=== PATIENT | female | born 1955 | race Caucasian/White ===

== ENCOUNTER 2017-01-31 08:53 | Emergency (ER) | payer OTHER ==
[~2017-01-31] VITALS: Ht 162.6 cm; Wt 94.0 kg
[~2017-01-31 08:53] MED LIST: IBUP200T2 PO; LYSI500C PO; MECL-62 PO; MULT1TAB84 PO; PROC10TA PO; VENTAER INH; [UNRECOGNIZED DRUG - CODE] PO
[2017-01-31 08:55] VITALS: BP 179/97; PULSE 124; RESP 20; TEMP 98.6; O2SAT 98
[2017-01-31] MEDS ORDERED: LYSI1TAB4 PO (09:10)
[2017-01-31] MEDS ORDERED: MULTTAB67 PO (09:10)
[2017-01-31 09:50] VITALS: BP 157/71; PULSE 121; RESP 24; O2SAT 97
[2017-01-31] MEDS ORDERED: TUSSSUS2 PO (09:56)
--- NOTE | 2017-01-31 10:00 | PD ---
HPI . Cough Chief Complaint: Respiratory Symptoms Time Seen by Provider: 09:53 Travel History International Travel<30 days: No Contact w/Intl Traveler<30days: No Traveled to known affect area: No History of Present Illness HPI This patient presents with a chief complaint of cough. She states that she was exposed to a chemical 2 days ago and has had episodes of coughing since that time. The cough is not productive. She is not short of breath. She is not running fever. She states that the chemical smell was in her house and that she didn't really think to open the windows. She states that she called her brother last night and he came and picked her up and took her to his house for the night and opened all the windows at her house. Her cough persisted during the night causing her brother to bring her here today for evaluation. This patient has a history of asthma and states that she has used her Ventolin inhaler approximately 5 times during the course of the night. Despite that, she has continued to cough. PFSH Past Medical History Asthma: Yes Cardiovascular Problems: Yes (FAMILY) COPD: No Diminished Hearing: No Endocrine: No Genitourinary: No Immune Disorder: No Musculoskeletal: Yes Neurologic: No Psychiatric: No Reproductive: No Respiratory: Yes (ASTHMA) Sleep Apnea: No Influenza Vaccination: No Menopausal: Yes Tubal Ligation: Yes (1988) Past Surgical History Abdominal Surgery: No Cardiac Surgery: No Ear Surgery: No Endocrine Surgery: No Eye Surgery: Yes (BOTH EYES AGE 2 AND AT 14) Genitourinary Surgery: No Gynecologic Surgery: Yes (D&C, tubal ligation - 26 years ago) Hysterectomy: Yes Oral Surgery: No Thoracic Surgery: No Tonsillectomy: Yes Other Surgery: Yes Social History Alcohol Use: No Tobacco Use: No Substance Use: No Allergies-Medications (Allergen,Severity, Reaction): Coded Allergies: doxycycline (Unverified Allergy, Severe, THROAT TIGHT, 01/31/17) minocycline (Unverified Allergy, Severe, THROAT TIGHT, 01/31/17) piroxicam (Unverified Allergy, Severe, Rash, 01/31/17) tigecycline (Unverified Allergy, Severe, THROAT TIGHT, 01/31/17) acetaminophen (Unverified Allergy, Intermediate, Itching, 01/31/17) oxycodone (Unverified Allergy, Intermediate, Itching, 01/31/17) monosodium glutamate (Unverified Allergy, Mild, ASTHMA PROBLEMS, 01/31/17) lactose (Unverified Allergy, Unknown, 01/31/17) Reported Meds & Prescriptions Reported Meds & Active Scripts Active Tussionex Pennkinetic Ext 12 HR Liq (Hydrocodone-Chlorpheniramine 12 HR Liq) 10- 8 Mg/5 Ml Susp 5 Ml PO Q12H PRN Meclizine (Meclizine HCl) 25 Mg Tab 25 Mg PO TID PRN Ventolin Hfa 18 GM Inh (Albuterol Sulfate) 90 Mcg/Act Aer 2 Puff INH Q4H PRN Reported Multiple Vitamin 1 Tab 1 Tab PO DAILY Lysine (Lysine HCl) 500 Mg Tab 1 Tab PO BID Review of Systems Except as stated in HPI: all other systems reviewed are Neg General / Constitutional: No: Fever, Chills Respiratory: Positive: Cough, No: Shortness of Breath Physical Exam Narrative GENERAL: Awake and alert and in no acute distress. SKIN: warm/dry. No rash. HEAD: Normocephalic. Atraumatic. EYES: Pupils equal and round. No scleral icterus. No injection or drainage. ENT: No nasal bleeding or discharge. Mucous membranes pink and moist. NECK: Trachea midline. Full range of motion without pain.. CARDIOVASCULAR: Regular rate and rhythm. Heart sounds normal. RESPIRATORY: Able to speak in complete sentences with no respiratory distress. No accessory muscle use. Clear to auscultation. Breath sounds equal bilaterally. GASTROINTESTINAL: Abdomen soft. Nontender. Bowel sounds present. Nondistended. MUSCULOSKELETAL: No obvious deformities. NEUROLOGICAL: Awake and alert. No obvious cranial nerve deficits. Motor grossly within normal limits. Normal speech. PSYCHIATRIC: Appropriate mood and affect; insight and judgment normal. Data Data Last Documented VS Vital Signs Date Time Temp Pulse Resp B/P (MAP) Pulse Ox O2 Delivery O2 Flow Rate FiO2 01/31/17 09:50 121 24 157/71 (99) 97 Room Air 01/31/17 08:55 98.6 MDM Medical Decision Making Medical Screen Exam Complete: Yes Emergency Medical Condition: Yes Differential Diagnosis Differential diagnosis includes but is not limited to viral respiratory illness , bronchitis, pneumonia, allergies, CHF, asthma/COPD. Narrative Course This patient presents with a cough which started after she noted a chemical odor in her house. She does have a history of asthma. However, her chest exam is completely normal. It sounds like she has a mild case of chemical pneumonitis. She will be discharged with instructions to continue her albuterol as needed. I will give her a prescription for Tussionex for cough suppression. Diagnosis Primary Impression: Chemical pneumonitis Patient Instructions: General Instructions Departure Forms: Tests/Procedures Scripts Hydrocodone-Chlorpheniramine 12 HR Liq (Tussionex Pennkinetic Ext 12 HR Liq) 10- 8 Mg/5 Ml Susp 5 ML PO Q12H Y for COUGH AND/OR COLD SYMPTOMS, #60 ML 0 Refills Prov: Sherrie Hernandez MD 01/31/17 Disposition: DISCHARGE HOME Condition: Stable Sherrie Hernandez MD Jan 31, 2017 10:00
[2017-02-06] MEDS ORDERED: PULM180I INH (14:05)
== END 2017-01-31 10:25 | disposition home or self-care (01) ==
LOC: NEPD 08:53
DX: T59.91XA Toxic effect of unspecified gases, fumes and vapors, accidental (unintentional), initial encounter (principal); J68.0 Bronchitis and pneumonitis due to chemicals, gases, fumes and vapors; Z87.09 Personal history of other diseases of the respiratory system; Z87.39 Personal history of other diseases of the musculoskeletal system and connective tissue; Y92.009 Unspecified place in unspecified non-institutional (private) residence as the place of occurrence of the external cause
CPT/HCPCS: 99283

== ENCOUNTER → 2017-02-09 | Outpatient (CLI) | payer OTHER ==
[~2017-02-09] MED LIST changes: -IBUP200T2 PO; +LYSI1TAB4 PO; -LYSI500C PO; -MULT1TAB84 PO; +MULTTAB67 PO; -PROC10TA PO; +PULM180I INH; +TUSSSUS2 PO; -[UNRECOGNIZED DRUG - CODE] PO
--- NOTE | 2017-02-09 11:02 | RADRPT ---
EXAM DATE/TIME: 02/09/2017 10:34 [facility] COMPARISON: No previous studies available for comparison. INDICATIONS : Chest discomfort; Chemical pneumonitis. MEDICAL HISTORY : Asthma. SURGICAL HISTORY : None. ENCOUNTER: Initial ACUITY: 3 weeks PAIN SCORE: 0/10 LOCATION: Bilateral chest FINDINGS: PA and lateral views of the chest demonstrate the lungs to be symmetrically aerated without evidence of mass, infiltrate or effusion. The cardiomediastinal contours are unremarkable. Osseous structure s are intact. CONCLUSION: No acute disease. Leopoldo Wolfe MD on February 09, 2017 at 10:47 Board Certified Radiologist. This report was verified electronically.
== END ==
LOC: HLAB 10:14
PROVIDERS: ATTEND Family Medicine
DX: J68.0 Bronchitis and pneumonitis due to chemicals, gases, fumes and vapors (principal)
CPT/HCPCS: 71020

== ENCOUNTER 2017-05-15 19:02 | Emergency (ER) | payer OTHER ==
[~2017-05-15] VITALS: Ht 162.6 cm; Wt 93.0 kg
[~2017-05-15 19:02] MED LIST changes: -LYSI1TAB4 PO; +LYSI500T12 PO
[2017-05-15 19:19] VITALS: BP 143/71; PULSE 87; RESP 19; TEMP 97.9; O2SAT 99
[2017-05-15] MEDS ORDERED: SODIUM CHLOR 0.9% 1000 ML INJ 1,000 ML IV SCH (19:33)
[2017-05-15 19:44] VITALS: O2SAT 98
[2017-05-15] MEDS ORDERED: SODIUM CHLORIDE 0.9% FLUSH 10 ML FLUSH IV FLUSH PRN (19:45)
[2017-05-15] MEDS ORDERED: DICYCLOMINE HCL 20 MG/2 ML VIAL IM ONE (19:45)
[2017-05-15] MEDS ORDERED: LIDOCAINE VISCOUS 2% SOLN 15 ML UDC PO ONE (19:45)
[2017-05-15] MEDS ORDERED: ALUMINUM/MAGNESIUM/SIMETH 30 ML CUP PO ONE (19:45)
[2017-05-15] MEDS ORDERED: HYDROmorphone HCL PF 2 MG/ML VIAL IV PUSH ONE (19:45)
[2017-05-15] MEDS ORDERED: ONDANSETRON HCL 4 MG/2 ML VIAL IVP ONE (19:45)
[2017-05-15 20:14] LABS: AUTOMATED NEUTROPHIL # 10.7 TH/MM3 (1.8-7.7); BASOPHIL % 0.3 % (0.0-2.0); EOSINOPHIL # 0.2 TH/MM3 (0-0.4); EOSINOPHIL % 1.8 % (0.0-4.0); HEMATOCRIT 45.5 % (35.0-46.0); HEMOGLOBIN 15.1 GM/DL (11.6-15.3); LYMPH % 12.7 % (9.0-44.0); LYMPHOCYTE # 1.7 TH/MM3 (1.0-4.8); MEAN CELL VOLUME 82.9 FL (80.0-100.0); MEAN CORPUSCULAR HEMOGLOBIN 27.4 PG (27.0-34.0); MEAN CORPUSCULAR HGB CONC 33.1 % (32.0-36.0); MEAN PLATELET VOLUME 8.7 FL (7.0-11.0); MONO % 4.7 % (0.0-8.0); MONOCYTE # 0.6 TH/MM3 (0-0.9); NEUT % 80.5 % (16.0-70.0); PLATELET COUNT 272 TH/MM3 (150-450); RED BLOOD COUNT 5.49 MIL/MM3 (4.00-5.30); RED CELL DISTRIBUTION WIDTH 13.6 % (11.6-17.2); WHITE BLOOD COUNT 13.2 TH/MM3 (4.0-11.0)
[2017-05-15 20:27] LABS: ALBUMIN 4.4 GM/DL (3.4-5.0); AST (GOT) 25 U/L (15-37); BICARBONATE 25.8 MEQ/L (21.0-32.0); BLOOD UREA NITROGEN 15 MG/DL (7-18); CALCIUM 9.1 MG/DL (8.5-10.1); CHLORIDE 104 MEQ/L (98-107); CREATININE 0.84 MG/DL (0.50-1.00); GLOMERULAR FILTRATION RATE 68 ML/MIN (>89); GLUCOSE,RANDOM 133 MG/DL (74-106); LIPASE 106 U/L (73-393); SODIUM (NA) 138 MEQ/L (136-145)
[2017-05-15 20:31] LABS: ALKALINE PHOSPHATASE 85 U/L (45-117); ALT (GPT) 37 U/L (10-53); TOTAL BILIRUBIN ADULT 0.7 MG/DL (0.2-1.0); TOTAL PROTEIN 8.2 GM/DL (6.4-8.2)
[2017-05-15] MEDS ORDERED: IOHEXOL 350 MG/ML 10 ML VIAL (for RAD DIAG) IVCONTRAST ONE (21:07)
--- NOTE | 2017-05-15 21:27 | RADRPT ---
EXAM DATE/TIME: 05/15/2017 20:59 [facility] COMPARISON: No previous studies available for comparison. INDICATIONS : Abdominal pain. IV CONTRAST: 91 cc Omnipaque 350 (iohexol) IV ORAL CONTRAST: No oral contrast ingested. RADIATION DOSE: 19.20 CTDIvol (mGy) MEDICAL HISTORY : Cardiovascular disease. Asthma SURGICAL HISTORY : Tubal ligation. Tonsillectomy.D&C ENCOUNTER: Initial ACUITY: 1 day PAIN SCALE: 6/10 LOCATION: abdomen TECHNIQUE: Volumetric scanning of the abdomen and pelvis was performed. Using automated exposure control and ad justment of the mA and/or kV according to patient size, radiation dose was kept as low as reasonably achievable to obtain optimal diagnostic quality images. DICOM format image data is available electro nically for review and comparison. FINDINGS: Minimal basilar scarring. Mild fatty liver. Spleen, adrenals, kidneys and pancreas unremarkable. No c alcified gallstones or biliary ductal dilatation. There is a diffuse mild ileus. No definite bowel obstruction. No free air or free fluid. No adenopath y. CONCLUSION: 1. Mild basilar lung scarring. Mild fatty liver. Diffuse ileus. No obstruction, free fluid or free ai r. Alverto Babcock MD on May 15, 2017 at 21:22 Board Certified Radiologist. This report was verified electronically.
[2017-05-15 22:52] LABS: BACTERIA, URINE FEW /hpf; BILIRUBIN, URINE NEG (NEG); BLOOD, URINE NEG (NEG); GLUCOSE,URINE NEG (NEG); KETONE, URINE NEG (NEG); MUCUS URINE FEW /lpf (OCC); NITRITE,URINE NEG (NEG); PH, URINE 5.5 (5.0-8.5); SQUAMOUS EPITHELIAL CELL URINE 2 /hpf (0-5); URINE COLOR LIGHT-YELLOW (YELLW/STRAW); URINE LEUKOCYTE ESTERASE MOD (NEG)
[2017-05-15] MEDS ORDERED: BACT800T5 PO (23:06)
--- NOTE | 2017-05-15 23:06 | PD ---
HPI Chief Complaint: GI Complaint Time Seen by Provider: 19:20 Travel History International Travel<30 days: No Contact w/Intl Traveler<30days: No Traveled to known affect area: No History of Present Illness HPI The patient 61 years old. She arrives by EMS. She reports a sudden onset of nausea vomiting and epigastric abdominal pain. EMS gave Zofran which was marginally helpful. She has no fever. She has no shortness of breath. No blood in the emesis reported. Pain severity reported to 10 over 10. Duration pain about 5 hours. PFSH Past Medical History Asthma: Yes Cardiovascular Problems: Yes (FAMILY) COPD: No Diminished Hearing: No Endocrine: No Gastrointestinal Disorders: No Genitourinary: No Immune Disorder: No Implanted Vascular Access Dvce: No Musculoskeletal: Yes Neurologic: No Psychiatric: No Reproductive: No Respiratory: Yes (ASTHMA) Sleep Apnea: No ?: Not Menopausal: Yes Tubal Ligation: Yes (1988) Past Surgical History Abdominal Surgery: No Cardiac Surgery: No Ear Surgery: No Endocrine Surgery: No Eye Surgery: Yes (BOTH EYES AGE 2 AND AT 14) Genitourinary Surgery: No Gynecologic Surgery: Yes (D&C, tubal ligation - 26 years ago) Hysterectomy: Yes Neurologic Surgery: No Oral Surgery: No Thoracic Surgery: No Tonsillectomy: Yes Other Surgery: Yes Social History Alcohol Use: No Tobacco Use: No Substance Use: No Allergies-Medications (Allergen,Severity, Reaction): Coded Allergies: doxycycline (Unverified Allergy, Severe, THROAT TIGHT, 05/15/17) minocycline (Unverified Allergy, Severe, THROAT TIGHT, 05/15/17) piroxicam (Unverified Allergy, Severe, Rash, 05/15/17) tigecycline (Unverified Allergy, Severe, THROAT TIGHT, 05/15/17) acetaminophen (Unverified Allergy, Intermediate, Itching, 05/15/17) oxycodone (Unverified Allergy, Intermediate, Itching, 05/15/17) monosodium glutamate (Unverified Allergy, Mild, ASTHMA PROBLEMS, 05/15/17) lactose (Unverified Allergy, Unknown, 05/15/17) Reported Meds & Prescriptions Reported Meds & Active Scripts Active Bactrim DS (Sulfamethoxazole-Trimethoprim) 800-160 Mg Tab 1 Tab PO BID Pulmicort Flexhaler (Budesonide Powder Inh) 180 Mcg/Act Inhp 180 Mcg INH Q12HR Tussionex Pennkinetic Ext 12 HR Liq (Hydrocodone-Chlorpheniramine 12 HR Liq) 10- 8 Mg/5 Ml Susp 5 Ml PO Q12H PRN Meclizine (Meclizine HCl) 25 Mg Tab 25 Mg PO TID PRN Ventolin Hfa 18 GM Inh (Albuterol Sulfate) 90 Mcg/Act Aer 2 Puff INH Q4H PRN Reported Multiple Vitamin 1 Tab 1 Tab PO DAILY Lysine (Lysine HCl) 500 Mg Tab 1 Tab PO BID Review of Systems Except as stated in HPI: all other systems reviewed are Neg General / Constitutional: No: Fever Physical Exam Narrative GENERAL: 61-year-old female pleasant well-nourished well-developed mild distress SKIN: Warm and dry. HEAD: Atraumatic. Normocephalic. EYES: Pupils equal and round. No scleral icterus. No injection or drainage. ENT: No nasal bleeding or discharge. Mucous membranes pink and moist. NECK: Trachea midline. No JVD. CARDIOVASCULAR: Regular rate and rhythm. RESPIRATORY: No accessory muscle use. Clear to auscultation. Breath sounds equal bilaterally. GASTROINTESTINAL: Abdomen soft, non-tender, nondistended. Hepatic and splenic margins not palpable. MUSCULOSKELETAL: Extremities without clubbing, cyanosis, or edema. No obvious deformities. NEUROLOGICAL: Awake and alert. No obvious cranial nerve deficits. Motor grossly within normal limits. Five out of 5 muscle strength in the arms and legs. Normal speech. PSYCHIATRIC: Appropriate mood and affect; insight and judgment normal. Data Data Last Documented VS Vital Signs Date Time Temp Pulse Resp B/P (MAP) Pulse Ox O2 Delivery O2 Flow Rate FiO2 05/15/17 19:44 98 Room Air 05/15/17 19:19 97.9 87 19 143/71 (95) VS reviewed Orders Orders Complete Blood Count With Diff (05/15/17 19:33) Comprehensive Metabolic Panel (05/15/17 19:33) Lipase (05/15/17 19:33) Urinalysis - C+S If Indicated (05/15/17 19:33) Ct Abd/Pel W Iv Contrast(Rout) (05/15/17 19:33) Iv Access Insert/Monitor (05/15/17 19:33) Ecg Monitoring (05/15/17 19:33) Oximetry (05/15/17 19:33) Ondansetron Inj (Zofran Inj) (05/15/17 19:45) Sodium Chlor 0.9% 1000 Ml Inj (Ns 1000 M (05/15/17 19:33) Sodium Chloride 0.9% Flush (Ns Flush) (05/15/17 19:45) Dicyclomine Inj (Bentyl Inj) (05/15/17 19:45) Al-Mag Hy-Si 40-40-4 Mg/Ml Liq (Mag-Al P (05/15/17 19:45) Lidocaine 2% Viscous (Xylocaine 2% Visco (05/15/17 19:45) Hydromorphone Pf Inj (Dilaudid Pf Inj) (05/15/17 19:45) Iohexol 350 Inj (Omnipaque 350 Inj) (05/15/17 21:07) Urine Culture (05/15/17 22:20) Sulfamet-Trimeth Ds 800-160 Mg (Bactrim (05/15/17 23:15) Ed Discharge Order (05/15/17 23:35) Labs Laboratory Tests Test 05/15/17 19:45 05/15/17 22:20 White Blood Count 13.2 TH/MM3 Red Blood Count 5.49 MIL/MM3 Hemoglobin 15.1 GM/DL Hematocrit 45.5 % Mean Corpuscular Volume 82.9 FL Mean Corpuscular Hemoglobin 27.4 PG Mean Corpuscular Hemoglobin Concent 33.1 % Red Cell Distribution Width 13.6 % Platelet Count 272 TH/MM3 Mean Platelet Volume 8.7 FL Neutrophils (%) (Auto) 80.5 % Lymphocytes (%) (Auto) 12.7 % Monocytes (%) (Auto) 4.7 % Eosinophils (%) (Auto) 1.8 % Basophils (%) (Auto) 0.3 % Neutrophils # (Auto) 10.7 TH/MM3 Lymphocytes # (Auto) 1.7 TH/MM3 Monocytes # (Auto) 0.6 TH/MM3 Eosinophils # (Auto) 0.2 TH/MM3 Basophils # (Auto) 0.0 TH/MM3 CBC Comment DIFF FINAL Differential Comment Blood Urea Nitrogen 15 MG/DL Creatinine 0.84 MG/DL Random Glucose 133 MG/DL Total Protein 8.2 GM/DL Albumin 4.4 GM/DL Calcium Level 9.1 MG/DL Alkaline Phosphatase 85 U/L Aspartate Amino Transf (AST/SGOT) 25 U/L Alanine Aminotransferase (ALT/SGPT) 37 U/L Total Bilirubin 0.7 MG/DL Sodium Level 138 MEQ/L Potassium Level 3.8 MEQ/L Chloride Level 104 MEQ/L Carbon Dioxide Level 25.8 MEQ/L Anion Gap 8 MEQ/L Estimat Glomerular Filtration Rate 68 ML/MIN Lipase 106 U/L Urine Color LIGHT-YELLOW Urine Turbidity CLEAR Urine pH 5.5 Urine Specific [place] GREATER THAN 1.050 Urine Protein TRACE mg/dL Urine Glucose (UA) NEG mg/dL Urine Ketones NEG mg/dL Urine Occult Blood NEG Urine Nitrite NEG Urine Bilirubin NEG Urine Urobilinogen LESS THAN 2.0 MG/DL Urine Leukocyte Esterase MOD Urine RBC 5 /hpf Urine WBC 20 /hpf Urine Squamous Epithelial Cells 2 /hpf Urine Bacteria FEW /hpf Urine Mucus FEW /lpf Microscopic Urinalysis Comment CULTURE INDICATED MDM Medical Decision Making Medical Screen Exam Complete: Yes Emergency Medical Condition: Yes Medical Record Reviewed: Yes Differential Diagnosis Constipation, Gastritis, Acute Cholecystitis, Biliary Colic, Pancreatitis, BAGLEY , Hepatitis, Bowel Obstruction, Cystitis, Mesenteric Ischemia, AAA, Appendicitis , Renal Stone/Hydronephrosis, GERD, perforated viscous Narrative Course CBC & BMP Diagram 05/15/17 19:45 Total Protein 8.2, Albumin 4.4, Calcium Level 9.1, Alkaline Phosphatase 85, Aspartate Amino Transf (AST/SGOT) 25, Alanine Aminotransferase (ALT/SGPT) 37, Total Bilirubin 0.7 UA: UTI present Last Impressions Abdomen/Pelvis CT 05/15/17 1933 Signed Impressions: Service Date/Time: Monday, May 15, 2017 20:59 - CONCLUSION: 1. Mild basilar lung scarring. Mild fatty liver. Diffuse ileus. No obstruction, free fluid or free air. Alverto Babcock MD The patient is resting comfortably and feels better, is alert and in no distress. The patients results and examination findings were discussed. The repeat examination is unremarkable and benign. The history, exam, diagnostic testing, and current condition do not suggest any significant pathology to warrant further testing, continued ED treatment, admission, or surgical evaluation at this point. The vital signs have been stable. The patient does not have uncontrollable pain, intractable vomiting, or other significant symptoms. The patient's condition is stable and appropriate for discharge. The patient will pursue further outpatient evaluation with a primary care physician or other designated or consulting physician as indicated in the discharge instructions. The patient expressed understanding and was agreeable with this plan. Diagnosis Primary Impression: Cystitis Additional Impression: Abdominal pain Qualified Codes: R10.9 - Unspecified abdominal pain Med/Other Pt SpecificInfo: Prescription(s) given Scripts Sulfamethoxazole-Trimethoprim (Bactrim DS) 800-160 Mg Tab 1 TAB PO BID for Infection, #14 TAB 0 Refills Prov: Brice Crooks MD 05/15/17 Disposition: 01 DISCHARGE HOME Condition: Stable Brice Crooks MD May 15, 2017 23:06
[2017-05-15] MEDS ORDERED: SULFAMETHOXAZOLE-TRIMETHOPRIM DS 800-160 MG TAB PO ONE (23:15)
== END 2017-05-16 00:15 | disposition home or self-care (01) ==
LOC: NEPD 19:02
DX: N30.90 Cystitis, unspecified without hematuria (principal); R10.9 Unspecified abdominal pain; K76.0 Fatty (change of) liver, not elsewhere classified; K56.7 Ileus, unspecified; J45.909 Unspecified asthma, uncomplicated; Z88.5 Allergy status to narcotic agent; Z88.8 Allergy status to other drugs, medicaments and biological substances; Z79.899 Other long term (current) drug therapy
CPT/HCPCS: 74177; 80053; 81001; 83690; 85025; 87086; 96361; 96372; 96374; 96375; 99285; J0500; J1170; J2405; J7030; Q9967